=== PATIENT | male | born 1995 | race Asian ===

== ENCOUNTER 2019-02-24 18:48 | Emergency (ER) | payer OTHER ==
[~2019-02-24] VITALS: Ht 167.6 cm; Wt 77.3 kg
[2019-02-24] MEDS ORDERED: ASPIRIN 81 MG CHEW TABLET PO ONE (19:45)
[2019-02-24] MEDS ORDERED: NITROGLYCERIN 0.4 MG SUBL TABLET SL PRN (19:45)
[2019-02-24 19:47] LABS: BASO % 0.5 % (0.0-1.0); EOS # 0.1 10^3/uL (0.0-0.50); EOS % 1.3 % (0.0-3.0); HEMATOCRIT 45.3 % (42.0-52.0); HEMOGLOBIN 15.4 g/dl (13.5-17.5); LYMPH # 1.5 10^3/uL (1.5-6.5); LYMPH % 27.8 % (24.0-44.0); MEAN CORPUSCULAR VOLUME 94.2 fl (80.0-96.0); MONO # 0.5 10^3/uL (0.0-0.8); MONO % 8.6 % (0.0-5.0); NEUTROPHILS # 3.4 10^3/uL (1.8-7.7); NEUTROPHILS % 61.4 % (36.0-66.0); PLATELET COUNT, AUTOMATED 271 10^3/uL (150-450); RED BLOOD COUNT 4.81 10^6/uL (4.30-6.10); WHITE BLOOD COUNT 5.5 10^3/uL (4.0-10.0)
[2019-02-24 19:52] VITALS: BP 143/75
[2019-02-24 20:02] LABS: INR 0.97
[2019-02-24 20:03] LABS: PARTIAL THROMBOPLASTIN TIME 29.2 SECONDS (25.4-37.6)
[2019-02-24 20:16] LABS: ALBUMIN 4.4 GM/DL (3.2-5.2); ALT/SGPT 41 U/L (12-78); BILIRUBIN,TOTAL 0.6 MG/DL (0.2-1.0); BLOOD UREA NITROGEN 11 MG/DL (7-18); CALCIUM LEVEL 9.5 MG/DL (8.5-10.1); CARBON DIOXIDE LEVEL 29 MEQ/L (21-32); CHLORIDE LEVEL 107 MEQ/L (98-107); CK-MB VALUE MASS < 1.0 NG/ML (<3.6); CPK CREATINE PHOSPHOKINASE 175 U/L (39-308); CREATININE FOR GFR 1.02 MG/DL (0.70-1.30); GLOMERULAR FILTRATION RATE > 60.0 (>60); GLUCOSE, FASTING 89 MG/DL (70-100); LIPASE 108 U/L (73-393); MB/CK RELATIVE INDEX 0.57 (< OR =4); POTASSIUM SERUM 4.6 MEQ/L (3.5-5.1); SODIUM LEVEL 140 MEQ/L (136-145); TOTAL PROTEIN 7.4 GM/DL (6.4-8.2); TROPONIN I < 0.02 NG/ML (< 0.10)
[2019-02-24] MEDS ORDERED: ISOVUE-370 76% 100ML VIAL (Q9967) As Ordered ONE (20:30)
--- NOTE | 2019-02-24 21:10 | ECGEPIP ---
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
--- NOTE | 2019-02-24 21:11 | REPVR ---
EXAM: CT Angiography Chest With Contrast EXAM DATE/TIME: 02/24/2019 8:32 PM CLINICAL HISTORY: 23 years old, male; Chest pain TECHNIQUE: Imaging protocol: Axial computed tomographic angiography images of the chest with intravenous contrast using CT angiography protocol. Coronal and sagittal reformatted images were created and reviewed. 3D rendering: MIP reconstructed images were created and reviewed. Radiation optimization: All CT scans at this facility use at least one of these dose optimization techniques: automated exposure control; mA and/or kV adjustment per patient size (includes targeted exams where dose is matched to clinical indication); or iterative reconstruction. Contrast material: ISOVUE 370; Contrast volume: 75 ml; Contrast route: IV; COMPARISON: No relevant prior studies available. FINDINGS: Pulmonary arteries: Normal. No pulmonary emboli. Aorta: Normal. No aortic aneurysm. No aortic dissection. Lungs: Normal. No consolidation. No masses. Pleural space: Normal. No pneumothorax. No pleural effusion. Heart: Normal. No cardiomegaly. No pericardial effusion. Lymph nodes: Unremarkable. No enlarged lymph nodes. Bones/joints: Unremarkable. No acute fracture. Soft tissues: Unremarkable. IMPRESSION: No acute findings. Electronically signed by: Fidencio Caraballo On 02/24/2019 21:11:43 PM
[2019-02-25 01:58] LABS: CK-MB VALUE MASS < 1.0 NG/ML (<3.6); CPK CREATINE PHOSPHOKINASE 141 U/L (39-308); MB/CK RELATIVE INDEX 0.71 (< OR =4); TROPONIN I < 0.02 NG/ML (< 0.10)
[2019-02-25 02:15] VITALS: BP 115/77
--- NOTE | 2019-02-25 08:19 | ECGEPIP ---
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
== END 2019-02-25 02:26 | disposition home or self-care (01) ==
LOC: M ED 18:48
DX: R07.9 Chest pain, unspecified (principal); I45.19 Other right bundle-branch block; I44.4 Left anterior fascicular block; R00.1 Bradycardia, unspecified; M48.00 Spinal stenosis, site unspecified; M51.9 Unspecified thoracic, thoracolumbar and lumbosacral intervertebral disc disorder; Z72.0 Tobacco use
CPT/HCPCS: 71275; 80053; 82550; 82553; 83690; 84484; 85025; 85610; 85730; 93005; 93041; 94760; 99285; Q9967

== ENCOUNTER → 2019-06-16 | Outpatient (CLI) | payer OTHER ==
--- NOTE | 2019-06-16 14:33 | PFTRPT ---
Height: 56.00 Inches Weight: 170.00 Lbs BSA: 1.66 Diagnosis: ASTHMA DATE OF PROCEDURE: 06/16/2019 ORDERED BY: Yg Mcghee Spirometry: Study of excellent technical quality. Forced vital capacity normal. FEV1 in proportion. Obstructive index is, therefore, normal. Flow Volume Loop: Expiratory limb of the flow volume loop is reasonably normal. Lung Volumes: Total lung capacity is elevated. Residual volume is in proportion. Diffusing Capacity: Diffusing capacity normal. Airway Mechanics: Airway resistance and conductance are normal. IMPRESSION: Probably normal study. MTDD
== END ==
LOC: M CARPUL 13:46
PROVIDERS: ATTEND Physician Assistant
DX: J45.909 Unspecified asthma, uncomplicated (principal)

== ENCOUNTER 2019-07-29 09:26 | Emergency (ER) | payer OTHER ==
[~2019-07-29] VITALS: Ht 167.6 cm; Wt 77.5 kg
[2019-07-29 10:34] LABS: BASO % 0.3 % (0.0-1.0); EOS # 0.2 10^3/uL (0.0-0.5); EOS % 2.7 % (0.0-3.0); HEMOGLOBIN 15.3 g/dl (13.5-17.5); LYMPH # 1.6 10^3/uL (1.5-5.0); LYMPH % 26.6 % (24.0-44.0); MEAN CORPUSCULAR HEMOGLOBIN 32.1 pg (27.0-33.0); MEAN CORPUSCULAR HGB CONC 34.8 g/dl (32.0-36.5); MEAN CORPUSCULAR VOLUME 92.4 fl (80.0-96.0); MONO # 0.5 10^3/uL (0.0-0.8); MONO % 7.8 % (0.0-5.0); NEUTROPHILS # 3.7 10^3/uL (1.5-8.5); NEUTROPHILS % 62.4 % (36.0-66.0); PLATELET COUNT, AUTOMATED 314 10^3/uL (150-450); RED BLOOD COUNT 4.76 10^6/uL (4.30-6.10); WHITE BLOOD COUNT 5.9 10^3/uL (4.0-10.0)
[2019-07-29 10:49] LABS: D-DIMER QUANT 411.24 ng/ml (<500)
[2019-07-29 10:52] LABS: INR 0.97; PROTHROMBIN TIME 12.6 SECONDS (11.8-14.0)
[2019-07-29 11:08] LABS: ALBUMIN 4.2 GM/DL (3.2-5.2); ALT/SGPT 37 U/L (12-78); BILIRUBIN,DIRECT < 0.1 MG/DL (0.0-0.2); BILIRUBIN,TOTAL 0.6 MG/DL (0.2-1.0); BLOOD UREA NITROGEN 13 MG/DL (7-18); CALCIUM LEVEL 9.5 MG/DL (8.5-10.1); CARBON DIOXIDE LEVEL 28 MEQ/L (21-32); CHLORIDE LEVEL 106 MEQ/L (98-107); CK-MB VALUE MASS < 1.0 NG/ML (<3.6); CPK CREATINE PHOSPHOKINASE 149 U/L (39-308); CREATININE FOR GFR 0.99 MG/DL (0.70-1.30); FREE T4 1.25 NG/DL (0.76-1.46); GLOMERULAR FILTRATION RATE > 60.0 (>60); GLUCOSE, FASTING 100 MG/DL (70-100); LIPASE 123 U/L (73-393); MB/CK RELATIVE INDEX 0.67 (< OR =4); POTASSIUM SERUM 3.9 MEQ/L (3.5-5.1); SODIUM LEVEL 139 MEQ/L (136-145); TOTAL PROTEIN 7.7 GM/DL (6.4-8.2); TROPONIN I < 0.02 NG/ML (< 0.10)
[2019-07-29 11:13] LABS: ERYTHROCYTE SEDIMENTATION RATE 3 mm/hr (0-15)
[2019-07-29 11:37] VITALS: BP 135/69
--- NOTE | 2019-07-29 12:11 | REP ---
Two-view chest: 07/29/2019. Indication: Dyspnea. Cough. Comparison: CT chest dated 02/24/2019. Findings: The lungs are clear. There is no pleural effusion or pneumothorax. The cardiomediastinal silhouette is unremarkable. Impression: Clear lungs. Electronically Signed by Brent Hernandez DO 07/29/2019 12:02 P
--- NOTE | 2019-07-29 15:41 | ECGEPIP ---
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
== END 2019-07-29 12:26 | disposition home or self-care (01) ==
LOC: M ED 09:26
DX: R00.2 Palpitations (principal); R07.9 Chest pain, unspecified; F17.200 Nicotine dependence, unspecified, uncomplicated

== ENCOUNTER → 2019-08-01 | Outpatient (REF) | payer OTHER ==
[2019-08-06 00:10] LABS: D001-IgE D pteronyssinus 8.17 kU/L (Class IV); E005-IgE Dog Dander 0.66 kU/L (Class II); F002-IgE Milk < 0.10 kU/L (Class 0); F004-IgE Wheat 0.21 kU/L (Class 0/I); F013-IgE Peanut 0.22 kU/L (Class 0/I); F014-IgE Soybean 0.17 kU/L (Class 0/I); F026-IgE Pork < 0.10 kU/L (Class 0); F027-IgE Beef 0.18 kU/L (Class 0/I); F245-IgE Egg, Whole < 0.10 kU/L (Class 0); FX02-IgE Food Mix (Sea Foods) Positive (.); G002-IgE Bermuda Grass 0.24 kU/L (Class 0/I); G008-IgE Kentucky Bluegrass 0.33 kU/L (Class I); IMMUNOGLOBULIN E, TOTAL 1819 IU/mL (6-495); M001-IgE Penicillium chrysogen < 0.10 kU/L (Class 0); M002 IgE Cladosporium herbaru 0.87 kU/L (Class II); M003 IgE Aspergillus fumigatu 0.42 kU/L (Class I); M006-IgE Alternaria alternata < 0.10 kU/L (Class 0); T001-IgE Maple/Box Elder 1.51 kU/L (Class III); T003-IgE Common Silver Birch 0.52 kU/L (Class I); T006-IgE Cedar, Mountain 0.35 kU/L (Class I); T007-IgE Oak, White 0.27 kU/L (Class 0/I); T008-IgE Elm, American 7.26 kU/L (Class IV); T015-IgE Ash, White 1.27 kU/L (Class II); T041-IgE Hickory, White 0.25 kU/L (Class 0/I); T070-IgE White Mulberry 0.15 kU/L (Class 0/I); W001-IgE Ragweed, Short 1.55 kU/L (Class III); W009-IgE Plantain, English 0.29 kU/L (Class 0/I); W014-IgE Pigweed, Rough 0.25 kU/L (Class 0/I); W018-IgE Sheep Sorrel 0.32 kU/L (Class I)
== END ==
LOC: M SFHCLERA 17:49
PROVIDERS: ATTEND Physician Assistant
DX: L20.9 Atopic dermatitis, unspecified (principal)